=== PATIENT | male | born 1955 | race Caucasian/White ===

== ENCOUNTER → 2021-02-15 13:13 | Outpatient (CLI) | payer OTHER ==
--- NOTE | ~2021-02-15 | EC ---
PATIENT:LYUDMILA GAMBLE DATE OF SERVICE: 02/15/21 SEX: M MEDICAL RECORD: [id number] DATE OF : 59 LOCATION:[facility] AGE OF PATIENT: 65 ADMISSION DATE: 02/15/21 REFERRING PHYSICIAN: INTERPRETING PHYSICIAN: JANNIE SILVA MD ECHOCARDIOGRAM REPORT ECHO CHARGES 4 ECHO COMPLETE Date: 02/15/21 CLINICAL DIAGNOSIS: HEART MURMUR ECHOCARDIOGRAPHIC MEASUREMENTS (adult normal given) AC root (d.<3.7cm) 3.6 cm LV Septum d (<1.2 cm> 1.3 cm Valve Excursion 2.1 cm LV Septum (systole) 1.7 cm Left Atria (s.<4.0cm> 4.0 cm LVPW d(<1.2cm) 1.5 cm RV (d.<2.3cm) 4.2 cm LVPW (sytole) 1.7 cm LV diastole(<5.6CM) 4.8 cm MV E-F(>70mm/sec) cm LV systole 3.3 cm LVOT Diameter 2.3 cm MV exc.(>10mm) 1.2 cm Est.ejection fraction (50-75%) % DOPPLER: LVIT cm/sec A 95.0 cm/sec E 65.0 cm/sec LA cm/sec RVSP 20 mmHg LVOT 73 cm/sec AOP1/2T m/s Asc. Ao 146 cm/sec RVOT 84 cm/sec RA cm/sec PA 142 cm/sec AV Gradient Peak 8.54 mmHg AV Mean 3.88 mmHg AV Area 2.4 cm MV Gradient Peak 3.35 mmHg MV Mean 1.22 mmHg MV Area cm COMMENTS: Doctorate Of Chiropractic: 2 LENNIE MENDIOLA Streetcar Operator: 3 Dr. [place] TAPE# PACS Pericardial Effusion N DATE OF SERVICE: Adequate 2D, color-flow imaging, spectral Doppler, and M-Mode FINDINGS: Mild LVH. LV internal dimension is normal. Wall motion is normal. EF is greater than or equal to 55%. Aortic valve is tricuspid. No evidence of stenosis by Doppler interrogation. Left atrium is normal at 4.0 cm. Mitral valve shows no prolapse. Trivial MR. Right side is grossly normal. Trivial TR. ECHOCARDIOGRAM REPORT [id number] LYUDMILA GAMBLE TRANSINT:[id number] Voice Confirmation ID: [id number] DOCUMENT ID: [id number] JANNIE SILVA MD CC: [id number] DICTATION DATE: 02/16/21 1018 CONTINUOUS IMPROVEMENT MANAGER: 02/16/21 1546 DEP CLI 02/15/21 [id number] [place] [address]
--- NOTE | 2021-02-16 11:32 | ST ---
PATIENT:LYUDMILA GAMBLE MEDICAL RECORD: [id number] SEX: M LOCATION:[facility] ORDER #: ADMISSION DATE: 02/15/21 AGE OF PATIENT: 65 REFERRING PHYSICIAN: INTERPRETING PHYSICIAN: JANNIE SILVA MD DATE OF SERVICE: 02/15/2021 TREADMILL STRESS TEST Baseline ECG is normal. Exercised for 7 minutes 4 seconds on Joe protocol. Maximum heart rate 157 beats per minute, 100% max predicted. No ECG changes ischemia. No symptoms of ischemia. Normal blood pressure to exercise. No arrhythmias noted. Good exercise tolerance for age. TRANSINT:[id number] Voice Confirmation ID: [id number] DOCUMENT ID: [id number] JANNIE SILVA MD at 1132 CC: [id number] DICTATION DATE: 02/15/21 1608 FREELANCE PROGRAMMER/APP DEVELOPER: 02/16/21 1019 DEP CLI 02/15/21 [id number] [place] [address]
== END | disposition home or self-care (01) ==
LOC: D.HCCECHO 13:13
PROVIDERS: ATTEND Internal Medicine Interventional Cardiology
DX: R07.9 Chest pain, unspecified (principal)